=== PATIENT | male | born 1995 | race Caucasian/White ===

== ENCOUNTER 2023-02-28 19:06 | Emergency (ER) | payer SELFPAY ==
[2023-02-28 19:09] VITALS: BP 147/98; PULSE 105; RESP 20; TEMP 36.4; O2SAT 98
--- NOTE | 2023-02-28 19:25 | ED.WOUNDLAC ---
HPI - Wound/Laceration General Chief Complaint: Wound/Laceration Stated Complaint: Injury Rt Eyebrow Time Seen by Provider: 02/28/23 19:20 Source: patient, RN notes reviewed and old records reviewed Mode of arrival: ambulatory Limitations: no limitations History of Present Illness HPI narrative: 27-year-old male presents to [facility] with complaints of being hit by a baseball in the right eyebrow area proximally 15 minutes prior to arrival. Patient has laceration to the right eyebrow region with active bleeding noted, denies any LOC or any feelings of dizziness. Patient arrived holding pressure to area with a shirt. Patient reports that his tetanus is up to date. Onset (ago): minute(s) (within past 15 minutes) Location: face (right eyebrow) Patient tetanus UTD: Yes Treatments prior to arrival: other (pressure to area with shirt) Related Data Home Medications Medication Instructions Recorded Confirmed No Home Medications 02/28/23 02/28/23 Allergies Allergy/AdvReac Type Severity Reaction Status Date / Time No Known Allergies Allergy Unknown Verified 02/28/23 19:15 Review of Systems Review of Systems: CONSTITUTIONAL: Denies fever, chills, or sweats. CARDIOVASCULAR: Denies chest pain, palpitations, or edema. RESPIRATORY: Denies cough or dyspnea. SKIN: Reports laceration to right eyebrow was hit by baseball which caused laceration MUSCULOSKELETAL: Denies musculoskeletal pain NEUROLOGIC: Denies numbness, or weakness.denies any dizziness or any LOC All systems reviewed & are unremarkable except as noted in HPI and below PMFSH Social History Social History Smoking status: Never smoker Alcohol intake: current Comments At time of signature, agree with nursing past medical, surgical, social and family history. There is no relevant family history pertinent to the presenting complaint Exam Narrative: GENERAL: Well-appearing, well-nourished, and in no acute distress. HEAD: Normocephalic, atraumatic. NECK: Supple.no lymphadenopathy CHEST: Clear to auscultation. No respiratory distress.SAO2 98% on room air HEART: Regular rate and rhythm. No murmur heard. Normal peripheral pulses. EXTREMITIES: Normal range of motion. No edema. SKIN: Warm, dry, no rash. Reports laceration to right eyebrow was hit by baseball, 2cm linear laceration to right eyebrow with active bleeding NEURO: No focal deficits. Alert and oriented x3. Course Course Level of Care: Express Care Visit Vital Signs Vital signs: Vital Signs Temperature 36.4 C 02/28/23 19:09 Pulse Rate 105 H 02/28/23 19:09 Respiratory Rate 20 02/28/23 19:09 Blood Pressure 147/98 H 02/28/23 19:09 Pulse Oximetry 98 02/28/23 19:09 Oxygen Delivery Room Air 02/28/23 19:09 Temperature 36.4 C 02/28/23 19:09 Pulse Rate 105 H 02/28/23 19:09 Respiratory Rate 20 02/28/23 19:09 Blood Pressure 147/98 H 02/28/23 19:09 Pulse Oximetry 98 02/28/23 19:09 Oxygen Delivery Room Air 02/28/23 19:09 Procedures Laceration eyebrow: Date: 02/28/23 Time: 19:40 Site: face (eyebrow) Side (If applicable): right Size (cm): 2 Description: linear Depth: simple, single layer Local Anesthetic: lidocaine 1% Amount of anesthesia used (mL): 3 Pre-repair: wound explored, irrigated, irrigated extensively and other (cleansed with shurclens wound cleanser) ====== Skin Level ====== Skin layer closed with: nylon Size (cm): 4-0 Number of sutures: 4 Technique: simple, interrupted ====== Subcutaneous Layer ====== ====== Muscle Layer ====== ====== Tendon Layer ====== Dressing: right eyebrow laceration explored,cleansed with Shurclens wound cleanser, irrigated extensively,localized with lidocaine 1% 3cc. Application of 4 surtures using #4 Ethilon suture with edges well approximated,
--- NOTE | 2023-03-07 14:58 | PC.NURSE ---
See downtime charting for discharge disposition and discharge plan.
== END 2023-02-28 20:00 | disposition home or self-care (01) ==
PROVIDERS: Emergency Provider Registered Nurse; PCP Family Medicine
DX: S01.111A Laceration without foreign body of right eyelid and periocular area, initial encounter (principal); W21.03XA Struck by baseball, initial encounter
CPT/HCPCS: 12011; 99212; G0463

== ENCOUNTER 2024-09-22 14:42 | Outpatient (CLI) | payer OTHER, SELFPAY ==
--- NOTE | ~2024-09-22 | XR_ITS ---
CHEST RADIOGRAPH, PA AND LATERAL CLINICAL HISTORY: R05.9 - Cough, unspecified . COMPARISON: None available TECHNIQUE: PA and lateral views of the chest. FINDINGS The cardiomediastinal silhouette is unremarkable. The lungs are clear. Visualized osseous structures and soft tissues are unremarkable. IMPRESSION: No focal infiltrate or effusion. Reviewed, dictated and finalized at location [facility]. [facility]
== END 2024-09-22 14:43 | disposition home or self-care (01) ==
LOC: GOSHIMG 14:43
PROVIDERS: PCP Family Medicine; Visit Provider Nurse Practitioner Family
DX: R05.9 Cough, unspecified (principal); R50.9 Fever, unspecified
CPT/HCPCS: 71046